=== PATIENT | female | born 1955 | race Caucasian/White ===

== ENCOUNTER → 2017-07-09 | Outpatient (CLI) | payer OTHER ==
[~2017-07-09] MED LIST: GADOBUTROL 10 ML VIAL IVP ONE
== END ==
LOC: FIMAGING 18:50
PROVIDERS: ATTEND Internal Medicine
DX: K83.1 Obstruction of bile duct (principal)
CPT/HCPCS: A9585

== ENCOUNTER 2018-08-28 10:14 | Emergency (ER) | payer OTHER ==
--- NOTE | 2018-08-28 10:19 | EDPHY ---
H & P Time Seen by Provider: 08/28/18 10:19 - Personal History Tetanus Vaccine Date: <10yrs - Medical/Surgical History Hx Asthma: No Hx Chronic Respiratory Disease: No Hx Diabetes: No Hx Cardiac Disease: No Hx Renal Disease: No Hx Cirrhosis: No Hx Alcoholism: No Hx HIV/AIDS: No Hx Splenectomy or Spleen Trauma: No Other PMH: slipped discs, lab-alan - Social History Smoking Status: Never smoked Constitutional: Initial Vital Signs Temperature (C) 36.6 C 08/28/18 10:23 Heart Rate 86 08/28/18 10:23 Respiratory Rate 18 08/28/18 10:23 Blood Pressure 106/69 08/28/18 10:23 O2 Sat (%) 94 08/28/18 10:23 O2 Delivery Mode Room Air Allergies/Adverse Reactions: cephalexin monohydrate [From Keflex] Allergy (Intermediate, Verified 09/19/14 17 :10) RASH/HIVES Penicillins Allergy (Intermediate, Verified 09/19/14 17:10) RASH/HIVES topiramate [From Topamax] Allergy (Verified 08/28/18 10:29) Home Medications: Medication Instructions Recorded Sumatriptan Succinate [Imitrex] 50 mg PO DAILY PRN 11/07/12 Acetaminophen [Tylenol ES 500 mg 1,000 mg PO DAILY PRN 01/14/16 (*)] Albuterol [Ventolin Hfa Inhaler] 1 - 2 puffs IH Q4 PRN 01/14/16 Ibuprofen [Motrin (*)] 800 mg PO BID PRN 01/14/16 Multivitamins [Multivitamin (*)] 1 each PO DAILY 01/14/16 Roberta-3 Fatty Acids [Fish Oil 1000 1,000 mg PO DAILY 01/14/16 mg (*)] Ondansetron HCl [Zofran] 8 mg PO TID PRN 01/14/16 Medical Decision Making - Diagnostics Imaging: I viewed and interpreted images myself ED Course/Re-evaluation: CHIEF COMPLAINT: Chest tightness HISTORY OF PRESENT ILLNESS: The patient is a 63 y/o female with a history hypokalemia, hyponatremia and asthma complaining of rib pain and chest pain onset several days ago. Around 4- 5 days ago she developed the low left rib pain that has progressively worsened. Today she developed intermittent chest pain that is radiating across the entire top of her chest. She reports that this chest pain feels like there is a "burning poker" on her chest and thigh muscles. Due to the chest pain she is having difficulty raising her left arm and difficulty walking due to the thigh pain. When she presses on her left rib, the pain significantly increases and is sharp. No fever, headache, shortness of breath, abdominal pain, urinary or bowel complaints, numbness. REVIEW OF SYSTEMS: A comprehensive 10 system review of systems is otherwise negative aside from elements mentioned in the history of present illness and medical decision making. PHYSICAL EXAM: HR, BP, O2 Sat, RR. Temp noted General Appearance: Alert, well hydrated, appropriate, and non-toxic appearing. Head: Atraumatic without scalp tenderness or obvious injury Eyes: Pupils equal, round, reactive to light and accommodation, EOMI, no trauma , no injection. Ears: Clear bilaterally, no perforation, normal landmarks Nose: Atraumatic, no rhinorrhea, clear. Throat: There is no erythema or exudates, no lesions, normal tonsils, mucus membranes moist. Neck: Supple, 2+ carotid upstroke, nontender, no lymphadenopathy. Respiratory: No retractions, no distress, no wheezes, and no accessory muscle use. Lungs are clear to auscultation bilaterally. Cardiovascular: Regular rate and rhythm, no murmurs, rubs, or gallops. Bilateral carotid, radial, dorsalis pedis, and posterior tibial pulses intact. Good capillary refill all extremities. Chest: Left-sided rib tenderness to palpation. Gastrointestinal: Abdomen is soft, nontender, non-distended, no masses, no rebound, no guarding, no peritoneal signs. Musculoskeletal: Normal active ROM of all extremities, atraumatic. Neurological: Alert, appropriate, and interactive. The patient has normal DTRs and non-focal cranial nerves, motor, sensory, and cerebellar exam. Skin: No rashes, good turgor, no nodules on palpation. Past medical history: Hyponatremia, hypokalemia, HCV, migraines, asthma Past surgical history: Cholecystectomy Family history: "Strong family history of cardiac problems" Social history: at bedside, DIAGNOSTICS/PROCEDURES/CRITICAL CARE TIME: EKG: The 12 lead EKG was interpreted by myself as sinus rhythm with a rate of 86 , no signs of ischemia. See hard copy and/or "tracemaster" electronic copy for interpretation. Chest x-ray: No acute findings. DIFFERENTIAL DIAGNOSIS: The differential diagnosis for the patient's chest pain included but was not limited to myocardial ischemia, pulmonary embolus, chest wall pain, pleural inflammation, and pulmonary infectious causes. MEDICAL DECISION MAKING: The patient is a 63 y/o female with a history hypokalemia, hyponatremia and asthma complaining of a sharp rib pain and chest pain that feels like a " burning poker" onset several days ago. On exam she has reproducible left rib tenderness to palpation. She has an otherwise normal physical exam. Labs, EKG, and chest x-ray ordered; 324mg PO Aspirin administered. 1025: I reviewed patient's EKG which reveals a normal sinus rhythm with a rate of 86. There are no signs of ischemia. Labs still pending. 1045: Patient's troponin is normal, electrolytes still pending. 1105: I reviewed patient's chest x-ray which reveals no acute findings. Her sodium and chloride are mildly low. She is safe to be discharged home with plan to follow up with her PCP. 1108: Reassessed patient and discussed laboratory and imaging studies. I have advised her to follow up with her PCP for rib pain. Return precautions provided ; patient is comfortable with this plan. - Data Points Laboratory Results: Laboratory Results 08/28/18 10:30 08/28/18 10:30 08/28/18 08/28/18 08/28/18 10:33 10:30 10:30 WBC 5.94 10^3/uL 10^3/uL (3.80-9.50) RBC 3.95 10^6/uL L 10^6/uL (4.18-5.33) Hgb 11.9 g/dL L g/dL (12.6-16.3) Hct 35.9 % L % (38.0-47.0) MCV 90.9 fL fL (81.5-99.8) MCH 30.1 pg pg (27.9-34.1) MCHC 33.1 g/dL g/dL (32.4-36.7) RDW 12.3 % % (11.5-15.2) Plt Count 267 10^3/uL 10^3/uL (150-400) MPV 8.9 fL fL (8.7-11.7) Neut % (Auto) 78.7 % H % (39.3-74.2) Lymph % (Auto) 12.5 % L % (15.0-45.0) [place] % (Auto) 7.4 % % (4.5-13.0) Eos % (Auto) 0.5 % L % (0.6-7.6) Baso % (Auto) 0.7 % % (0.3-1.7) Nucleat RBC Rel Count 0.0 % % (0.0-0.2) Absolute Neuts (auto) 4.68 10^3/uL 10^3/uL (1.70-6.50) Absolute Lymphs (auto) 0.74 10^3/uL L 10^3/uL (1.00-3.00) Absolute Monos (auto) 0.44 10^3/uL 10^3/uL (0.30-0.80) Absolute Eos (auto) 0.03 10^3/uL 10^3/uL (0.03-0.40) Absolute Basos (auto) 0.04 10^3/uL 10^3/uL (0.02-0.10) Absolute Nucleated RBC 0.00 10^3/uL 10^3/uL (0-0.01) Immature Gran % 0.2 % % (0.0-1.1) Immature Gran # 0.01 10^3/uL 10^3/uL (0.00-0.10) Sodium 128 mEq/L L mEq/L (135-145) Potassium 4.1 mEq/L mEq/L (3.5-5.2) Chloride 90 mEq/L L mEq/L (97-110) Carbon Dioxide 24 mEq/l mEq/l (22-31) Anion Gap 14 mEq/L mEq/L (6-14) BUN 20 mg/dL mg/dL (7-23) Creatinine 1.3 mg/dL H mg/dL (0.6-1.0) Estimated GFR 41 Glucose 76 mg/dL mg/dL (70-100) Calcium 9.1 mg/dL mg/dL (8.5-10.4) POC Troponin I 0.00 ng/mL ng/mL (0.00-0.08) Medications Given: Discontinued Medications Aspirin (Aspirin) 324 mg PO EDNOW ONE Stop: 08/28/18 10:28 Last Admin: 08/28/18 10:35 Dose: 324 mg Point of Care Test Results: Chemistry 08/28/18 10:33 POC Troponin I 0.00 ng/mL ng/mL (0.00-0.08) Departure - Departure Disposition: Home, Routine, Self-Care Clinical Impression: Myalgia, Rib pain on right side Condition: Good Instructions: Musculoskeletal Pain (ED), Rib Contusion (ED) Additional Instructions: 1. Follow-up with your primary doctor within 72 hours. 2. Return to the Emergency Department for fever, chest pain, shortness of breath , increasing pain or other worsening of condition. Referrals: [facility],. [Clinic] - As per Instructions Report Scribed for: Joseluis Dukes Report Scribed by: Eboni Almaguer Date of Report: 08/28/18 Time of Report: 10:20
[2018-08-28] MEDS ORDERED: ASPIRIN 81 MG CHEWABLE TAB PO ONE (10:27)
[2018-08-28 10:29] VITALS: BP 106/69
[2018-08-28 10:42] LABS: PLATELET COUNT 267 10^3/uL (150-400)
--- NOTE | 2018-08-28 14:49 | CPEKG ---
Test Reason : OPEN Blood Pressure : / mmHG Vent. Rate : 086 BPM Atrial Rate : 086 BPM P-R Int : 157 ms QRS Dur : 076 ms QT Int : 376 ms P-R-T Axes : 010 055 044 degrees QTc Int : 450 ms Sinus rhythm Confirmed by Joseluis Dukes ([id number]) on 08/28/2018 2:49:26 PM Referred By: Joseluis Dukes Confirmed By:Joseluis Dukes
== END 2018-08-28 11:15 | disposition home or self-care (01) ==
DX: R07.81 Pleurodynia (principal); R07.9 Chest pain, unspecified; M79.10 Myalgia, unspecified site; E87.1 Hypo-osmolality and hyponatremia; E87.6 Hypokalemia; Z90.49 Acquired absence of other specified parts of digestive tract
CPT/HCPCS: 84484-ER

== ENCOUNTER 2018-08-30 13:45 | Emergency (ER) | payer OTHER ==
[2018-08-30] MEDS ORDERED: NS 1,000 ML IV ONE ×2 (14:44→15:09)
[2018-08-30] MEDS ORDERED: ONDANSETRON 4 MG/2 ML VIAL IVP ONE (14:44)
[2018-08-30 14:49] LABS: PLATELET COUNT 314 10^3/uL (150-400)
--- NOTE | 2018-08-30 15:02 | EDPHY ---
H & P Stated Complaint: abdominal pain and unable to urinate Time Seen by Provider: 08/30/18 14:40 HPI/ROS: CHIEF COMPLAINT: Abdominal pain, fever HISTORY OF PRESENT ILLNESS: The patient presents the ED with multiple complaints including bilateral upper abdominal pain, fever and cough. The patient developed her symptoms last Wednesday. She was treated with Tamiflu for presumptive influenza. She was seen in the ED 2 days ago with complaints of chest pain and abdominal pain. She had a negative workup at that point time. She was discharged home. The patient saw her primary care provider yesterday. She was started on antibiotics. The patient was advised to come to the ED today for evaluation of worsening upper abdominal pain. The patient denies any melena. REVIEW OF SYSTEMS: A comprehensive 10 point review of systems is otherwise negative aside from elements mentioned in the history of present illness. Source: Patient Exam Limitations: No limitations - Personal History Current Tetanus/Diphtheria Vaccine: Yes Current Tetanus Diphtheria and Acellular Pertussis (TDAP): Yes Tetanus Vaccine Date: <10yrs - Medical/Surgical History Hx Asthma: Yes Hx Chronic Respiratory Disease: No Hx Diabetes: No Hx Cardiac Disease: No Hx Renal Disease: No Hx Cirrhosis: No Hx Alcoholism: No Hx HIV/AIDS: No Hx Splenectomy or Spleen Trauma: No Other PMH: slipped discs, lab-alan - Social History Smoking Status: Never smoked - Physical Exam Exam: General Appearance: Alert, no distress Eyes: Pupils equal and round no pallor or injection ENT, Mouth: Mucous membranes moist Respiratory: There are no retractions, lungs are clear to auscultation Cardiovascular: Regular rate and rhythm Gastrointestinal: Bilateral upper abdominal tenderness to the lightest touch Neurological: 5/5 strength all 4 extremities Skin: Warm and dry, no rashes Musculoskeletal: Neck is supple nontender Extremities: symmetrical, full range of motion Constitutional: Initial Vital Signs Temperature (C) 36.7 C 08/30/18 13:57 Heart Rate 81 08/30/18 13:57 Respiratory Rate 20 08/30/18 13:57 Blood Pressure 110/68 08/30/18 13:57 O2 Sat (%) 97 08/30/18 13:57 O2 Delivery Mode Room Air Allergies/Adverse Reactions: cephalexin monohydrate [From Keflex] Allergy (Intermediate, Verified 09/19/14 17 :10) RASH/HIVES Penicillins Allergy (Intermediate, Verified 09/19/14 17:10) RASH/HIVES topiramate [From Topamax] Allergy (Verified 08/28/18 10:29) Home Medications: Medication Instructions Recorded Sumatriptan Succinate [Imitrex] 50 mg PO DAILY PRN 11/07/12 Acetaminophen [Tylenol ES 500 mg 1,000 mg PO DAILY PRN 01/14/16 (*)] Albuterol [Ventolin Hfa Inhaler] 1 - 2 puffs IH Q4 PRN 01/14/16 Ibuprofen [Motrin (*)] 800 mg PO BID PRN 01/14/16 Multivitamins [Multivitamin (*)] 1 each PO DAILY 01/14/16 Hewett-3 Fatty Acids [Fish Oil 1000 1,000 mg PO DAILY 01/14/16 mg (*)] Ondansetron HCl [Zofran] 8 mg PO TID PRN 01/14/16 Medical Decision Making - Diagnostics Imaging Results: Imaging Impressions Abdomen CT 08/30/18 15:09 Impression: Ascending and transverse colon with mild amount of air-fluid level, including the cecum. Question early enteritis. Findings and recommendations discussed with Dr. Ehsan Cox at 4:00 PM, . Final report concurs with initial preliminary interpretation. ED Course/Re-evaluation: The patient presents to the ED with a viral syndrome which has been present for the past several days. She is currently being treated with Tamiflu. The patient's chief complaint today is 1 of ongoing upper abdominal discomfort. The patient is noted to have bilateral upper abdominal tenderness. She has no peritoneal signs. CT scan of the abdomen pelvis demonstrates only enteritis without perforation or obstruction. Urinalysis demonstrates no evidence of an obvious infection. Patient has been encouraged to continue symptomatic management of her viral syndrome. She is discharged home with customary aftercare instructions and return precautions. Differential Diagnosis: Differential diagnosis considered includes perforation, obstruction, cholecystitis, pancreatitis, appendicitis, mesenteric adenitis, sepsis - Data Points Laboratory Results: Laboratory Results 08/30/18 14:30 08/30/18 14:30 08/30/18 08/30/18 08/30/18 16:20 14:35 14:30 WBC RBC Hgb Hct MCV MCH MCHC RDW Plt Count MPV Neut % (Auto) Lymph % (Auto) [place] % (Auto) Eos % (Auto) Baso % (Auto) Nucleat RBC Rel Count Absolute Neuts (auto) Absolute Lymphs (auto) Absolute Monos (auto) Absolute Eos (auto) Absolute Basos (auto) Absolute Nucleated RBC Immature Gran % Immature Gran # Sodium 126 mEq/L L mEq/L (135-145) Potassium 3.4 mEq/L L mEq/L (3.5-5.2) Chloride 84 mEq/L L mEq/L (97-110) Carbon Dioxide 27 mEq/l mEq/l (22-31) Anion Gap 15 mEq/L H mEq/L (6-14) BUN 13 mg/dL mg/dL (7-23) Creatinine 1.0 mg/dL mg/dL (0.6-1.0) Estimated GFR 56 Glucose 95 mg/dL mg/dL (70-100) Calcium 10.6 mg/dL H mg/dL (8.5-10.4) Total Bilirubin 0.7 mg/dL mg/dL (0.1-1.4) Conjugated Bilirubin 0.5 mg/dL mg/dL (0.0-0.5) Unconjugated Bilirubin 0.2 mg/dL mg/dL (0.0-1.1) AST 39 IU/L IU/L (14-46) ALT 28 IU/L IU/L (9-52) Alkaline Phosphatase 100 IU/L IU/L (38-126) Total Protein 8.7 g/dL H g/dL (6.3-8.2) Albumin 4.8 g/dL g/dL (3.5-5.0) Urine Color YELLOW Urine Appearance MODERATELY TURBID Urine pH 7.0 (5.0-7.5) Ur Specific [place] 1.018 (1.002-1.030) Urine Protein NEGATIVE (NEGATIVE) Urine Ketones 1+ H (NEGATIVE) Urine Blood NEGATIVE (NEGATIVE) Urine Nitrate NEGATIVE (NEGATIVE) Urine Bilirubin NEGATIVE (NEGATIVE) Urine Urobilinogen NEGATIVE EU EU (0.2-1.0) Ur Leukocyte Esterase NEGATIVE (NEGATIVE) Urine RBC Pending Urine WBC Pending Ur Epithelial Cells Pending Urine Glucose NEGATIVE (NEGATIVE) 08/30/18 14:30 WBC 5.08 10^3/uL 10^3/uL (3.80-9.50) RBC 4.51 10^6/uL 10^6/uL (4.18-5.33) Hgb 13.2 g/dL g/dL (12.6-16.3) Hct 38.7 % % (38.0-47.0) MCV 85.8 fL fL (81.5-99.8) MCH 29.3 pg pg (27.9-34.1) MCHC 34.1 g/dL g/dL (32.4-36.7) RDW 12.3 % % (11.5-15.2) Plt Count 314 10^3/uL 10^3/uL (150-400) MPV 8.9 fL fL (8.7-11.7) Neut % (Auto) 76.7 % H % (39.3-74.2) Lymph % (Auto) 15.4 % % (15.0-45.0) [place] % (Auto) 6.1 % % (4.5-13.0) Eos % (Auto) 0.8 % % (0.6-7.6) Baso % (Auto) 0.8 % % (0.3-1.7) Nucleat RBC Rel Count 0.0 % % (0.0-0.2) Absolute Neuts (auto) 3.90 10^3/uL 10^3/uL (1.70-6.50) Absolute Lymphs (auto) 0.78 10^3/uL L 10^3/uL (1.00-3.00) Absolute Monos (auto) 0.31 10^3/uL 10^3/uL (0.30-0.80) Absolute Eos (auto) 0.04 10^3/uL 10^3/uL (0.03-0.40) Absolute Basos (auto) 0.04 10^3/uL 10^3/uL (0.02-0.10) Absolute Nucleated RBC 0.00 10^3/uL 10^3/uL (0-0.01) Immature Gran % 0.2 % % (0.0-1.1) Immature Gran # 0.01 10^3/uL 10^3/uL (0.00-0.10) Sodium Potassium Chloride Carbon Dioxide Anion Gap BUN Creatinine Estimated GFR Glucose Calcium Total Bilirubin Conjugated Bilirubin Unconjugated Bilirubin AST ALT Alkaline Phosphatase Total Protein Albumin Urine Color Urine Appearance Urine pH Ur Specific [place] Urine Protein Urine Ketones Urine Blood Urine Nitrate Urine Bilirubin Urine Urobilinogen Ur Leukocyte Esterase Urine RBC Urine WBC Ur Epithelial Cells Urine Glucose Medications Given: Discontinued Medications Sodium Chloride (Ns) 1,000 mls @ 0 mls/hr IV ONCE ONE PRN Reason: Wide Open Stop: 08/30/18 14:45 Last Admin: 08/30/18 14:52 Dose: 1,000 mls Ondansetron HCl (Zofran) 4 mg IVP EDNOW ONE Stop: 08/30/18 14:45 Last Admin: 08/30/18 14:53 Dose: 4 mg Departure - Departure Disposition: Home, Routine, Self-Care Clinical Impression: Abdominal pain, Hyponatremia Condition: Good Instructions: Acute Abdominal Pain (ED) Additional Instructions: 1. Continue the medications you are currently prescribed. 2. Your CT scan demonstrates no evidence of a obvious intra-abdominal abnormality. 3. Return to the ED for markedly worsening symptoms or other concerns. 4. Please follow-up with your primary care provider as needed.
[2018-08-30] MEDS ORDERED: IOHEXOL 350mgI/ML (OMNIPAQUE) 150 ML BTL IV ONE (15:19)
[2018-08-30] MEDS ORDERED: KETOROLAC 30 MG/1 ML SDV IVP ONE (17:12)
[2018-08-30 17:40] VITALS: BP 133/69
== END 2018-08-30 17:39 | disposition home or self-care (01) ==
PROC: 4A0D7LZ Measurement of Urinary Volume, Via Natural or Artificial Opening (ICD-10-PCS; principal; 2018-08-30)
DX: R10.10 Upper abdominal pain, unspecified (principal); E87.1 Hypo-osmolality and hyponatremia; E86.9 Volume depletion, unspecified; J45.909 Unspecified asthma, uncomplicated; Z88.0 Allergy status to penicillin
CPT/HCPCS: 96374; J1885; J2405; Q9967

== ENCOUNTER 2018-09-08 11:19 | Inpatient (IN) | payer OTHER ==
[2018-09-08] MEDS ORDERED: NS 1,000 ML IV ONE (11:59)
[2018-09-08 12:56] LABS: PLATELET COUNT 427 10^3/uL (150-400)
[2018-09-08 13:14] LABS: CREATINE KINASE 55 IU/L (0-156)
--- NOTE | 2018-09-08 13:27 | EDPHY ---
H & P Stated Complaint: weakness and aches Time Seen by Provider: 09/08/18 12:23 HPI/ROS: CHIEF COMPLAINT: Muscle cramping and weakness HISTORY OF PRESENT ILLNESS: 63-year-old female presents with diffuse muscle cramping and muscular weakness. 2 weeks ago, onset of vomiting, associated with muscle cramping. Seen by her primary care physician and influenza swab was negative. Placed on Tamiflu in case influenza. On follow-up, she had worsened symptoms, so was started on Zithromax and Bactrim. She continues to have gradually increasing muscle cramping and generalized weakness. She is now having trouble walking because of bilateral leg weakness. Seen in this emergency department 9 days ago, CT scan abdomen pelvis reportedly negative. Feels chilled, No fever. REVIEW OF SYSTEMS: complete 10 point ROS reviewed and is negative except for the noted elements in the HPI - Personal History Current Tetanus/Diphtheria Vaccine: Yes Current Tetanus Diphtheria and Acellular Pertussis (TDAP): Yes Tetanus Vaccine Date: <10yrs - Medical/Surgical History Hx Asthma: Yes Hx Chronic Respiratory Disease: No Hx Diabetes: No Hx Cardiac Disease: No Hx Renal Disease: No Hx Cirrhosis: No Hx Alcoholism: No Hx HIV/AIDS: No Hx Splenectomy or Spleen Trauma: No Other PMH: slipped discs, lab-alan, - Social History Smoking Status: Never smoked - Physical Exam Exam: General Appearance: Alert, pleasant, cachectic Eyes: Pupils equal and round, no conjunctival pallor or injection ENT, Mouth: Mucous membranes dry Neck: Normal inspection Respiratory: Lungs are clear to auscultation Cardiovascular: Regular rate and rhythm Gastrointestinal: Abdomen is soft, diffuse tenderness Neurological: A&O, generalized weakness, patellar DTRs 1+ bilaterally, gait not assessed Skin: Warm and dry Extremities: Normal inspection Psychiatric: Mood and affect normal Constitutional: Initial Vital Signs Temperature (C) 36.4 C 09/08/18 11:28 Heart Rate 94 09/08/18 11:28 Respiratory Rate 16 09/08/18 11:28 Blood Pressure 100/66 09/08/18 11:28 O2 Sat (%) 97 09/08/18 11:28 O2 Delivery Mode Room Air Allergies/Adverse Reactions: cephalexin monohydrate [From Keflex] Allergy (Intermediate, Verified 09/08/18 11 :26) RASH/HIVES Penicillins Allergy (Intermediate, Verified 09/08/18 11:26) RASH/HIVES topiramate [From Topamax] Allergy (Verified 09/08/18 11:26) Home Medications: Medication Instructions Recorded Sumatriptan Succinate [Imitrex] 50 mg PO DAILY PRN 11/07/12 Acetaminophen [Tylenol ES 500 mg 1,000 mg PO DAILY PRN 01/14/16 (*)] Albuterol [Ventolin Hfa Inhaler] 1 - 2 puffs IH Q4 PRN 01/14/16 Ibuprofen [Motrin (*)] 600 mg PO BID PRN 01/14/16 Multivitamins [Multivitamin (*)] 1 each PO DAILY 01/14/16 Merrick-3 Fatty Acids [Fish Oil 1000 1,000 mg PO DAILY 01/14/16 mg (*)] Ondansetron HCl [Zofran] 8 mg PO TID PRN 01/14/16 Bimatoprost [Latisse] 3 ml TP DAILY 09/08/18 Calcium Carbonate [Oyster Shell 1,000 mg PO TID 09/08/18 Calcium 500 mg (*)] Epinastine 0.05% [Elestat 0.05% 1 drops EACHEYE DAILY 09/08/18 (RX)] Estradiol 10 mcg VG MWF 09/08/18 Estradiol [Estrace Vaginal (*)] 1 gm VG DAILY 09/08/18 Gabapentin [Neurontin 300 MG (*)] 300 mg PO HS 09/08/18 Hydrochlorothiazide [HCTZ (*)] 25 mg PO DAILY 09/08/18 Lidocaine [Lidoderm] 1 each TP DAILY 09/08/18 Magnesium Citrate 200 mg PO BID 09/08/18 Potassium Cl [Klor-Con 20 meq (*)] 20 meq PO BID 09/08/18 predniSONE 20 mg PO DAILY 09/08/18 Medical Decision Making - Diagnostics EKG Interpretation: EKG interpreted by me reveals normal sinus rhythm, rate 77, low voltage, no ST or T segment changes. Interpretation: Otherwise normal EKG. Imaging Results: Chest X-Ray 09/08/18 12:31 Impression: Airways disease. No pneumonia. Imaging: I viewed and interpreted images myself ED Course/Re-evaluation: This pt presents with gradually worsening muscle weakness and muscle pain after recent viral syndrome. IV NS and Toradol IV given. Considered Guillain [place]; pt has reflexes, which I would not expect with GBS, but still possible. Hyponatremia likely secondary to dehydration, ?SIADH assoc with GBS. Pt also has eating disorder, could be contributing to dx. No evidence of pneumonia, other active infectious etiology, abx not indicated. Pt unable to ambulate, will need admission for further eval and treatment. The hospitalist service was consulted for admission. Differential Diagnosis: GBS, other GBS variant, hyponatremia, influenza, SIADH, severe dehydration, - Data Points Laboratory Results: Laboratory Results 09/08/18 12:30 09/08/18 12:30 Medications Given: Acetaminophen (Tylenol) 650 mg PO Q4HRS PRN PRN Reason: Pain, Mild/Fever, Can Take PO Stop: 03/07/19 14:18 Last Admin: 09/09/18 12:53 Dose: 650 mg Calcium Carbonate (Oyster Shell Calcium) 1,000 mg PO TID CAMRON Stop: 03/07/19 21:59 Last Admin: 09/10/18 14:57 Dose: 1,000 mg Epinastine HCl (Elestat 0.05%) 1 drops EACHEYE DAILY CAMRON Stop: 03/08/19 08:59 Last Admin: 09/10/18 12:19 Dose: Not Given Estradiol (Estrace Vaginal) 1 gm VG DAILY CAMRON Stop: 03/08/19 08:59 Last Admin: 09/10/18 12:20 Dose: Not Given Gabapentin (Neurontin) 300 mg PO HS CAMRON Stop: 03/07/19 20:59 Last Admin: 09/09/18 21:37 Dose: 300 mg Sodium Chloride (Ns) 1,000 mls @ 75 mls/hr IV CONT CAMRON Stop: 09/11/18 02:04 Last Admin: 09/09/18 21:40 Dose: 1,000 mls Ciprofloxacin/Dextrose (Cipro 400 Mg (Premix)) 200 mls @ 200 mls/hr IV Q12HRS CAMRON PRN Reason: Protocol Stop: 10/10/18 13:14 Last Admin: 09/10/18 14:57 Dose: 200 mls Ibuprofen (Motrin) 600 mg PO BID PRN PRN Reason: *Pain, Inflammatory Stop: 03/07/19 16:58 Last Admin: 09/10/18 05:50 Dose: 600 mg Miscellaneous Information (Patch Removal) 1 ea TD DAILY21 CAMRON Stop: 03/07/19 20:59 Last Admin: 09/09/18 21:38 Dose: 1 ea Miscellaneous Medication (Bimatoprost [Latisse]) 3 ml TP DAILY CAMRON Stop: 03/08/19 08:59 Last Admin: 09/10/18 12:19 Dose: Not Given Miscellaneous Medication (Estradiol [Estradiol]) 10 mcg VG MWF CAMRON Stop: 03/08/19 07:59 Last Admin: 09/09/18 08:40 Dose: Not Given Miscellaneous Medication (Icy Hot Lidocaine/Menthol 4%/1% Patch) 1 patch TD DAILY CAMRON Stop: 03/08/19 08:59 Last Admin: 09/10/18 10:56 Dose: 1 patch Miscellaneous Medication (Magnesium Citrate [Magnesium Citrate]) 200 mg PO BID CAMRON Stop: 03/07/19 20:59 Last Admin: 09/10/18 11:01 Dose: Not Given Multivitamins (Tab-A-Tory) 1 each PO DAILY CAMRON Stop: 03/08/19 08:59 Last Admin: 09/10/18 10:59 Dose: 1 each Thmpb-2-Sjhu Ethyl Esters (Fish Oil) 1,000 mg PO DAILY CAMRON Stop: 03/08/19 08:59 Last Admin: 09/10/18 11:01 Dose: 1,000 mg Ondansetron HCl (Zofran) 4 mg IVP Q4HRS PRN PRN Reason: Nausea/Vomiting, Can't Take PO Stop: 03/07/19 14:18 Last Admin: 09/10/18 11:00 Dose: 4 mg Oxycodone HCl (Oxycodone Ir) 5 mg PO Q4HRS PRN PRN Reason: Pain, Severe Able to Take PO Stop: 09/19/18 14:54 Last Admin: 09/10/18 14:57 Dose: 5 mg Potassium Chloride (Klor-Con) 20 meq PO BID CAMRON Stop: 03/07/19 20:59 Last Admin: 09/10/18 10:57 Dose: 20 meq Prednisone (Prednisone) 20 mg PO DAILY CAMRON Stop: 03/08/19 08:59 Last Admin: 09/10/18 11:00 Dose: 20 mg Discontinued Medications Sodium Chloride (Ns) 1,000 mls @ 0 mls/hr IV EDNOW ONE; Wide Open PRN Reason: Protocol Stop: 09/08/18 12:00 Last Admin: 09/08/18 12:02 Dose: 1,000 mls Sodium Chloride (Ns) 1,000 mls @ 0 mls/hr IV CONT CAMRON PRN Reason: TKO Stop: 03/07/19 13:29 Last Admin: 09/08/18 13:24 Dose: 1,000 mls Sodium Chloride (Ns) 1,000 mls @ 100 mls/hr IV CONT CAMRON Stop: 03/07/19 14:29 Last Admin: 09/08/18 16:51 Dose: 1,000 mls Magnesium Sulfate/Dextrose (Magnesium Sulf 1 Gm (Premix)) 100 mls @ 100 mls/hr IV ONCE ONE Stop: 09/09/18 13:23 Last Admin: 09/09/18 12:48 Dose: 100 mls Ketorolac Tromethamine (Toradol) 15 mg IVP EDNOW ONE Stop: 09/08/18 13:34 Last Admin: 09/08/18 13:37 Dose: 15 mg Ondansetron HCl (Zofran) 4 mg IVP EDNOW ONE Stop: 09/08/18 13:49 Last Admin: 09/08/18 14:31 Dose: 4 mg Potassium Chloride (Klor-Con) 40 meq PO ONCE ONE PRN Reason: Protocol Stop: 09/08/18 16:07 Last Admin: 09/08/18 16:51 Dose: 40 meq Potassium Chloride (Klor-Con) 10 meq PO ONCE ONE PRN Reason: Protocol Stop: 09/09/18 20:34 Last Admin: 09/09/18 21:37 Dose: 10 meq Departure - Departure Disposition: [facility] Acute Clinical Impression: Hyponatremia, Generalized weakness Condition: Fair
[2018-09-08] MEDS ORDERED: NS 1,000 ML IV SCH ×3 (13:30→21:15)
[2018-09-08] MEDS ORDERED: KETOROLAC 15 MG/1 ML SDV IVP ONE (13:33)
[2018-09-08] MEDS ORDERED: ONDANSETRON 4 MG/2 ML VIAL IVP ONE (13:48)
[2018-09-08] MEDS ORDERED: ONDANSETRON DISINTEGRATING 4 MG TAB PO PRN (14:19)
[2018-09-08] MEDS ORDERED: PROTOCOL MAGNESIUM 1 DOSE IV PRN (14:26)
[2018-09-08] MEDS ORDERED: PROTOCOL POTASSIUM 1 DOSE MISC PRN (14:26)
--- NOTE | 2018-09-08 15:02 | GHP ---
[f rep st] HISTORY AND PHYSICAL DATE OF ADMISSION: 09/08/2018 HISTORY OF PRESENT ILLNESS: The patient is a 63-year-old female with a history of chronic hyponatrem ia, hydrochlorothiazide therapy, hepatitis C and biliary stricture, who presents with a couple weeks of malaise. She has had a few ER visits. She was seen by her primary care physician where she recei berry a flu test that was negative, but was treated with Bactrim and Tamiflu despite this. She has had decreased p.o. intake as well as all-over body pain. She has a spontaneous bruise on her right thig h. She does not recall falling nor does her . When I speak with her today, she is anxious, u ncomfortable, perhaps a bit confused. She says she has been eating and drinking very poorly. She st ates her eating disorder issues are in remission and she has been considered to have bulimia in the p ast. It is not clear that she has been vomiting. She has not had diarrhea. She does not have abdom inal pain. She has not been jaundiced. She said her hepatitis C treatment was successful. REVIEW OF SYSTEMS: A complete 10-point review of systems conducted and negative except as noted in t he HPI. PAST MEDICAL HISTORY: 1. Hepatitis C. 2. Biliary stricture. 3. Possible bulimia. 4. Chronic hyponatremia. 5. Lower extremity edema, but none today. 6. Migraines. ALLERGIES: Keflex, penicillins, Topamax. MEDICATIONS: Home medication list includes hydrochlorothiazide. An older list includes Tylenol, ibu profen, multivitamin, fish oil, ondansetron, potassium chloride, Imitrex. SOCIAL HISTORY: No tobacco. No alcohol. Does not live in [facility]. . FAMILY HISTORY: Parents . PHYSICAL EXAMINATION: VITAL SIGNS: Temp 36.6, blood pressure 110/60, pulse , breathing 19 times a minute, 97% on room air. GENERAL: Anxious, uncomfortable, no acute distress. HEENT: Scle marta anicteric. Oropharynx clear. Mucous membranes moist. NECK: Supple without lymphadenopathy or JVD. LUNGS: Clear to auscultation bilaterally. HEART: S1, S2. ABDOMEN: Soft, nontender, nondiste nded. LOWER EXTREMITIES: No edema. SKIN: A 4 cm bruise without fluctuance on her right thigh. Sk in is without rash. NEUROLOGIC: Exam is nonfocal. LABORATORY DATA: Sodium 121, potassium 3.1, chloride 79, bicarb 27, BUN 20, creatinine 1.2, baseline is lower than this. LFTs normal. CK is 55. Recent UA was negative. Recent Gardnerella DNA probe was negative. White count 6.5, hematocrit 36, platelets 427,000. Chest x-ray interpreted by me show s no acute cardiopulmonary disease. EKG shows sinus at 77 with normal axis and intervals, and no ST or T-wave changes. I discussed the case with Dr. Josselin Askew of the emergency department. ASSESSMENT AND PLAN: This is a 63-year-old female with acute on chronic hyponatremia. 1. Hyponatremia. This is hypovolemic hyponatremia as well as poor solute in the setting of hydrochl orothiazide therapy. a. Permanently discontinue hydrochlorothiazide. b. Gentle intravenous fluids with q.4 sodiums with a goal of raising of it to about 130 x 2:00 tomor row afternoon. c. We will check a TSH. d. Will give her t.i.d. Boost. 2. Some question of increased fluid intake, so would recommend a 2 L fluid restriction. 3. All-over body pain. It is difficult to know what to make of this. The patient is dramatic in he r presentation. I think it is appropriate to fix her sodium and re-evaluate. 4. Hypokalemia. We can put her on the electrolyte protocol. 5. History of eating disorder. It is difficult to know how this is playing into it. Eating disorde rs in adults rarely go into complete remission, so there is certainly concern that there could be a c omponent of self-restricted p.o. intake. 6. Prophylaxis with sequential compression devices. DISPOSITION: Inpatient status. /[id number]/MODL
[2018-09-08 15:19] LABS: INR 0.87 (0.83-1.16); PROTIME(PATIENT) 12.1 SEC (12.0-15.0)
--- NOTE | 2018-09-08 15:20 | CPEKG ---
Test Reason : OPEN Blood Pressure : / mmHG Vent. Rate : 077 BPM Atrial Rate : 077 BPM P-R Int : 197 ms QRS Dur : 083 ms QT Int : 401 ms P-R-T Axes : -32 054 053 degrees QTc Int : 454 ms Sinus rhythm Low voltage, precordial leads Confirmed by Sabrina Aponte ([id number]) on 09/08/2018 3:19:38 PM Referred By: SABRINA APONTE Confirmed By:Sabrina Aponte
[2018-09-08] MEDS ORDERED: POTASSIUM CL 10 MEQ TAB PO ONE (16:06)
--- NOTE | 2018-09-08 16:32 | PDMN ---
Medical Necessity Medical necessity: MCG: GRG systemic condition: hyponatremia NA 121 , with general body pains, weakness and cramping, bilateral leg weakness with difficulty ambulating, Hypokalemia( 3.1) , decreased PO intake, spontaneous bruising, confused, mildly elevated Cr 1.2, anticipate > 2 MN ongoing med nec care- further monitoring , eval and tx
[2018-09-08] MEDS ORDERED: ACETAMINOPHEN 500 MG TAB PO PRN (16:59)
[2018-09-08] MEDS ORDERED: ALBUTEROL 60 PUFFS/8 GM MDI IH PRN (17:15)
[2018-09-08] MEDS: IBUPROFEN 200 MG TAB PO PRN (17:16)
[2018-09-08] MEDS: ACETAMINOPHEN 325 MG TAB PO PRN (17:17)
[2018-09-08] MEDS: GABAPENTIN 300 MG CAP PO SCH (20:04)
[2018-09-08] MEDS: POTASSIUM CL 20 MEQ TAB PO SCH (20:08)
[2018-09-08] MEDS: ONDANSETRON 4 MG/2 ML VIAL IVP PRN (20:10)
[2018-09-08] MEDS: PATCH REMOVAL 1 EA PATCH TD SCH (21:07)
[2018-09-08] MEDS: MAGNESIUM CITRATE 200 MG PO SCH (21:07)
[2018-09-08] MEDS: CALCIUM CARBONATE 500 MG TAB PO SCH (21:08)
[2018-09-09] MEDS: ONDANSETRON 4 MG/2 ML VIAL IVP PRN ×5 (01:20→21:54)
[2018-09-09] MEDS: predniSONE 20 MG TAB PO SCH (08:33)
[2018-09-09] MEDS: POTASSIUM CL 20 MEQ TAB PO SCH ×2 (08:33→21:37)
[2018-09-09] MEDS: OMEGA-3 FATTY ACIDS 1,000 MG CAP PO SCH (08:33)
[2018-09-09] MEDS: MULTIVITAMINS 1 EACH TAB PO SCH (08:33)
[2018-09-09] MEDS: LIDOCAINE 4%/MENTHOL 1% PATCH TD SCH (08:34)
[2018-09-09] MEDS: CALCIUM CARBONATE 500 MG TAB PO SCH ×3 (08:34→21:36)
[2018-09-09] MEDS: BIMATOPROST TP SCH (08:40)
[2018-09-09] MEDS: MAGNESIUM CITRATE 200 MG PO SCH ×2 (08:41→21:23)
[2018-09-09] MEDS: EPINASTINE 0.05% 5 ML OPHT.BTL EACHEYE SCH (08:41)
[2018-09-09] MEDS: ESTRADIOL 42.5 GM CRTUBE VG SCH (08:42)
[2018-09-09] MEDS: IBUPROFEN 200 MG TAB PO PRN (08:44)
[2018-09-09] MEDS: ACETAMINOPHEN 325 MG TAB PO PRN ×2 (08:44→12:53)
[2018-09-09] MEDS ORDERED: MAGNESIUM SULF 1 GM/DEXTROSE 100 ML IV ONE (12:24)
[2018-09-09] MEDS: NS 1,000 ML IV SCH ×2 (12:48→21:40)
--- NOTE | 2018-09-09 15:01 | HOSPPROG ---
Hospitalist Progress Note Assessment/Plan: #acute vs subacute vs acute on chronic hyponatremia -acute valued likely hypovolemia mediated -Na today 127, these are values consistent with labs prior to hospitalization -still looks volume dry. Will provide additional IV hydration, serial bmp today. #Dehydration #Malaise, multifactorial #Pedal Edema -none noted -was on HCTZ for this (denies hx of HTN) -Stop HCTZ #Generalized Pain, acute on chronic -PCP has started Prednisone for this. Will cont for now, but would like to stop during this admission -will start low dose opiate #recent Influenza treated with Tamiflu. Also with Bactrim and Zpack. No indication for additional abx at this time #Weakness: PT to eval #Hx of Hep C, s/p treatment Subjective: still with generalized pain, malaise, weakness. afebrile Objective: Vital Signs Temp Pulse Resp BP Pulse Ox 36.8 C 76 14 107/66 95 09/09/18 11:46 09/09/18 11:46 09/09/18 11:46 09/09/18 11:46 09/09/18 11:46 Laboratory Results 09/09/18 11:23 09/08/18 09/09/18 09/10/18 05:59 05:59 05:59 Intake Total 1820 450 Output Total 650 100 Balance 1170 350 PT 12.1 SEC (12.0-15.0) 09/08/18 11:45 INR 0.87 (0.83-1.16) 09/08/18 11:45 - Physical Exam Constitutional: no apparent distress Eyes: PERRL, EOMI Ears, Nose, Mouth, Throat: moist mucous membranes, hearing normal Cardiovascular: regular rate and rhythym, No edema Respiratory: no respiratory distress, no rales or rhonchi, clear to auscultation Gastrointestinal: normoactive bowel sounds Skin: warm Musculoskeletal: generalized weakness Neurologic: AAOx3 Psychiatric: interacting appropriately, not anxious, not encephalopathic Lymph, Heme, Immunologic: No petechiae ICD10 Worksheet Patient Problems: Problems Problem Status Onset Hypokalemia Acute Nausea & vomiting Acute
--- NOTE | 2018-09-09 15:48 | ASMTCMCOM ---
CM Note CM Note Notes: Reviewed chart, pt admitted for general malaise. She has a history of hep c which was treated and an eating disorder which she feels is in remission. She lives at home with her , PT eval pending but anticipate she will dc independent. DC Plan: TBD Date Signed: 09/09/2018 03:47 PM Electronically Signed By:Martha Noe RN
[2018-09-09] MEDS: oxyCODONE IR 5 MG TAB PO PRN ×2 (16:57→21:36)
[2018-09-09] MEDS ORDERED: POTASSIUM CL 10 MEQ TAB PO ONE (20:33)
[2018-09-09] MEDS: GABAPENTIN 300 MG CAP PO SCH (21:37)
[2018-09-09] MEDS: PATCH REMOVAL 1 EA PATCH TD SCH (21:38)
[2018-09-10] MEDS: ONDANSETRON 4 MG/2 ML VIAL IVP PRN ×5 (02:50→23:27)
[2018-09-10] MEDS: oxyCODONE IR 5 MG TAB PO PRN ×6 (02:50→23:25)
[2018-09-10] MEDS: IBUPROFEN 200 MG TAB PO PRN (05:50)
[2018-09-10] MEDS: LIDOCAINE 4%/MENTHOL 1% PATCH TD SCH (10:56)
[2018-09-10] MEDS: POTASSIUM CL 20 MEQ TAB PO SCH ×2 (10:57→20:22)
[2018-09-10] MEDS: CALCIUM CARBONATE 500 MG TAB PO SCH ×3 (10:58→20:22)
[2018-09-10] MEDS: predniSONE 20 MG TAB PO SCH ×2 (10:58→11:00)
[2018-09-10] MEDS: MULTIVITAMINS 1 EACH TAB PO SCH ×2 (10:58→10:59)
[2018-09-10] MEDS: OMEGA-3 FATTY ACIDS 1,000 MG CAP PO SCH (11:01)
[2018-09-10] MEDS: MAGNESIUM CITRATE 200 MG PO SCH ×2 (11:01→20:23)
[2018-09-10] MEDS: BIMATOPROST TP SCH (12:19)
[2018-09-10] MEDS: EPINASTINE 0.05% 5 ML OPHT.BTL EACHEYE SCH (12:19)
[2018-09-10] MEDS: ESTRADIOL 42.5 GM CRTUBE VG SCH (12:20)
--- NOTE | 2018-09-10 13:15 | HOSPPROG ---
Hospitalist Progress Note Assessment/Plan: #acute vs subacute vs acute on chronic hyponatremia -likely hypovolemia mediated in the setting of SiADH -Na today 127, these are values consistent with labs prior to hospitalization -urine studies c/w SiADH #Dehydration: resolved #Malaise, multifactorial #Pedal Edema -none noted -was on HCTZ for this (denies hx of HTN) -Stop HCTZ #Generalized Pain, acute on chronic -PCP has started Prednisone for this. Will cont for now, but would like to stop during this admission -will start low dose opiate #recent Influenza treated with Tamiflu. Also with Bactrim and Zpack. No indication for additional abx at this time #Weakness: PT to eval #UTI: will start Rocephin. UCx sent #Hx of Hep C, s/p treatment Plan: doing better overall trial off IVF recheck labs in a.m. anticipate d/c tomorrow Subjective: no cp or sob. still feels weak but better. afebrile. reports vague urinary symtpoms, requesting treatment for UTI Objective: Vital Signs Temp Pulse Resp BP Pulse Ox 36.7 C 71 14 114/59 L 97 09/10/18 08:00 09/10/18 08:00 09/10/18 08:00 09/10/18 08:00 09/10/18 08:00 Laboratory Results 09/10/18 04:18 09/09/18 09/10/18 09/11/18 05:59 05:59 05:59 Intake Total 1820 1500 250 Output Total 650 1775 450 Balance 1170 -275 -200 PT 12.1 SEC (12.0-15.0) 09/08/18 11:45 INR 0.87 (0.83-1.16) 09/08/18 11:45 - Physical Exam Constitutional: no apparent distress Eyes: PERRL, EOMI Ears, Nose, Mouth, Throat: moist mucous membranes, hearing normal Cardiovascular: regular rate and rhythym Respiratory: no respiratory distress Gastrointestinal: normoactive bowel sounds Skin: warm Neurologic: AAOx3 Psychiatric: interacting appropriately, not anxious, not encephalopathic Lymph, Heme, Immunologic: No petechiae ICD10 Worksheet Patient Problems: Problems Problem Status Onset Hypokalemia Acute Nausea & vomiting Acute
[2018-09-10] MEDS: CIPROFLOXACIN 400 MG/DEXTROSE 200 ML IV SCH ×2 (14:57→20:27)
[2018-09-10] MEDS: GABAPENTIN 300 MG CAP PO SCH (20:21)
[2018-09-10] MEDS: PATCH REMOVAL 1 EA PATCH TD SCH (20:23)
[2018-09-11] MEDS: oxyCODONE IR 5 MG TAB PO PRN ×5 (03:49→22:43)
[2018-09-11] MEDS: ONDANSETRON 4 MG/2 ML VIAL IVP PRN ×4 (03:49→18:39)
[2018-09-11] MEDS: MULTIVITAMINS 1 EACH TAB PO SCH (08:11)
[2018-09-11] MEDS: POTASSIUM CL 20 MEQ TAB PO SCH ×2 (08:11→21:39)
[2018-09-11] MEDS: CALCIUM CARBONATE 500 MG TAB PO SCH ×3 (08:11→21:39)
[2018-09-11] MEDS: OMEGA-3 FATTY ACIDS 1,000 MG CAP PO SCH (08:12)
[2018-09-11] MEDS: predniSONE 20 MG TAB PO SCH ×2 (08:12→10:09)
[2018-09-11] MEDS: LIDOCAINE 4%/MENTHOL 1% PATCH TD SCH (10:09)
[2018-09-11] MEDS: CIPROFLOXACIN 400 MG/DEXTROSE 200 ML IV SCH ×2 (10:09→21:13)
[2018-09-11] MEDS: MAGNESIUM CITRATE 200 MG PO SCH ×2 (12:09→20:18)
[2018-09-11] MEDS: ESTRADIOL 42.5 GM CRTUBE VG SCH (12:09)
[2018-09-11] MEDS: BIMATOPROST TP SCH (12:09)
[2018-09-11] MEDS: EPINASTINE 0.05% 5 ML OPHT.BTL EACHEYE SCH (12:09)
--- NOTE | 2018-09-11 12:39 | HOSPPROG ---
Hospitalist Progress Note Assessment/Plan: #acute vs subacute vs acute on chronic hyponatremia -likely hypovolemia mediated in the setting of SiADH -Na today 125, these are values consistent with labs prior to hospitalization -urine studies c/w SiADH #Nausea and vomiting: -will schedule Phenergan which should also help with her TURNER #Dehydration: restart IVF, low oral intake now that she is nauseous #Malaise, multifactorial #Pedal Edema -none noted -was on HCTZ for this (denies hx of HTN) -Stop HCTZ #Generalized Pain, acute on chronic -PCP has started Prednisone for this. Will cont for now, but would like to stop during this admission -will start low dose opiate #recent Influenza treated with Tamiflu. Also with Bactrim and Zpack. No indication for additional abx at this time #Weakness: PT to eval #UTI: will start Rocephin. UCx sent #Hx of Hep C, s/p treatment Plan: not ready for discharge. New Nausea and vomiting. Na stable d/c: possibly tomorrow Subjective: vomiting, abd pain Objective: Vital Signs Temp Pulse Resp BP Pulse Ox 37.0 C 80 16 126/76 H 94 09/11/18 08:00 09/11/18 08:00 09/11/18 08:00 09/11/18 08:00 09/11/18 08:00 Laboratory Results 09/11/18 04:28 09/10/18 09/11/18 09/12/18 05:59 05:59 05:59 Intake Total 1500 1100 Output Total 1775 1450 200 Balance -275 -350 -200 PT 12.1 SEC (12.0-15.0) 09/08/18 11:45 INR 0.87 (0.83-1.16) 09/08/18 11:45 - Physical Exam Constitutional: no apparent distress Eyes: PERRL, EOMI Ears, Nose, Mouth, Throat: moist mucous membranes, hearing normal Cardiovascular: regular rate and rhythym Respiratory: no respiratory distress, no rales or rhonchi, clear to auscultation Gastrointestinal: normoactive bowel sounds, No tenderness, No distension Skin: warm Neurologic: AAOx3 Psychiatric: interacting appropriately, not anxious, not encephalopathic Lymph, Heme, Immunologic: No petechiae ICD10 Worksheet Patient Problems: Problems Problem Status Onset Generalized weakness Acute Hyponatremia Acute Hypokalemia Acute Nausea & vomiting Acute
[2018-09-11] MEDS ORDERED: SUMAtriptan 6 MG/0.5 ML VIAL SC ONE (12:40)
--- NOTE | 2018-09-11 12:44 | ASMTCMCOM ---
CM Note CM Note Notes: Patient with new onset n/v and TURNER. Discharge delayed but likely tomorrow. No needs per RN and PT. Current CM Discharge plan: home independent w Date Signed: 09/11/2018 12:44 PM Electronically Signed By:Amelie Ugalde RN
[2018-09-11] MEDS ORDERED: NS W/ 20 KCl/L 1,000 ML IV SCH (12:45)
[2018-09-11] MEDS: PROMETHAZINE HCL 25 MG/ML INJ IVP SCH ×4 (15:00→22:39)
[2018-09-11] MEDS: PANTOPRAZOLE SODIUM 40 MG VIAL IVP SCH (16:28)
[2018-09-11] MEDS: GABAPENTIN 300 MG CAP PO SCH (21:38)
[2018-09-11] MEDS: PATCH REMOVAL 1 EA PATCH TD SCH (21:38)
[2018-09-11] MEDS: IBUPROFEN 200 MG TAB PO PRN (22:43)
[2018-09-12] MEDS: oxyCODONE IR 5 MG TAB PO PRN ×4 (04:50→21:23)
[2018-09-12] MEDS ORDERED: MAGNESIUM SULF 1 GM/DEXTROSE 100 ML IV ONE (08:03)
[2018-09-12] MEDS: PROMETHAZINE HCL 25 MG/ML INJ IVP SCH ×3 (08:29→21:07)
[2018-09-12] MEDS: LIDOCAINE 4%/MENTHOL 1% PATCH TD SCH (08:34)
[2018-09-12] MEDS: BIMATOPROST TP SCH (08:38)
[2018-09-12] MEDS: MAGNESIUM CITRATE 200 MG PO SCH ×2 (08:39→21:29)
[2018-09-12] MEDS: ESTRADIOL 42.5 GM CRTUBE VG SCH (08:39)
[2018-09-12] MEDS: EPINASTINE 0.05% 5 ML OPHT.BTL EACHEYE SCH (08:39)
[2018-09-12] MEDS: PANTOPRAZOLE SODIUM 40 MG VIAL IVP SCH (08:40)
--- NOTE | 2018-09-12 08:50 | HOSPPROG ---
Hospitalist Progress Note Assessment/Plan: #Acute vs chronic hyponatremia -likely hypovolemia mediated in the setting of SiADH, HCTZ -Na improving with NS, cont and repeat BMP this janay #Nausea and vomiting: -will schedule Phenergan #Dehydration: restart IVF, low oral intake now that she is nauseous #Malaise, multifactorial #Pedal Edema -was on HCTZ for this (denies hx of HTN) -Stop HCTZ #Generalized Pain, acute on chronic -stopped Prednisone bc not effective. Unclear reason for this pain?? Would not expect this given electrolyte derangements not PCP has started Prednisone for this. Query secondary gain? -Low TSH, but free T3/4 normal #Recent Influenza: s/p Tamiflu. #UTI: Day 2/ abx #Hx of Hep C, s/p treatment Disp: likely DC in 1-2 days once Na improved Subjective: "burning pain from chest to thighs". Prednisone did not help Objective: Vital Signs Temp Pulse Resp BP Pulse Ox 36.8 C 85 17 130/76 H 96 09/12/18 07:47 09/12/18 07:47 09/12/18 07:47 09/12/18 07:47 09/12/18 07:47 Laboratory Results 09/12/18 04:26 09/11/18 09/12/18 09/13/18 05:59 05:59 05:59 Intake Total 1100 200 Output Total 1450 1400 Balance -350 -1200 PT 12.1 SEC (12.0-15.0) 09/08/18 11:45 INR 0.87 (0.83-1.16) 09/08/18 11:45 - Time Spent With Patient Time Spent with Patient: greater than 35 minutes Time Spent with Patient: Greater than 35 minutes spent on this patients care, greater than 50% of time spent counseling, educating, and coordinating care regarding the above mentioned plan. - Physical Exam Constitutional: other (anxious) Eyes: PERRL Ears, Nose, Mouth, Throat: moist mucous membranes Cardiovascular: regular rate and rhythym Respiratory: no respiratory distress Gastrointestinal: normoactive bowel sounds Genitourinary: no bladder fullness Skin: warm Musculoskeletal: full muscle strength, no muscle tenderness Neurologic: AAOx3, sensation intact bilaterally, CN II-XII Intact Psychiatric: interacting appropriately, anxious, poor insight ICD10 Worksheet Patient Problems: Problems Problem Status Onset Generalized weakness Acute Hyponatremia Acute Hypokalemia Acute Nausea & vomiting Acute
[2018-09-12] MEDS: CIPROFLOXACIN 400 MG/DEXTROSE 200 ML IV SCH ×2 (10:09→21:25)
[2018-09-12] MEDS: CALCIUM CARBONATE 500 MG TAB PO SCH ×3 (10:12→21:12)
[2018-09-12] MEDS: POTASSIUM CL 20 MEQ TAB PO SCH ×2 (10:12→21:23)
[2018-09-12] MEDS: OMEGA-3 FATTY ACIDS 1,000 MG CAP PO SCH (10:12)
[2018-09-12] MEDS: MULTIVITAMINS 1 EACH TAB PO SCH (10:13)
[2018-09-12] MEDS ORDERED: SUMAtriptan 6 MG/0.5 ML VIAL SC ONE ×2 (10:26→15:00)
[2018-09-12] MEDS: ONDANSETRON 4 MG/2 ML VIAL IVP PRN (11:16)
[2018-09-12] MEDS ORDERED: ACET/CAFFEINE/BUTA FIORICET 1 EACH TAB PO PRN (12:03)
[2018-09-12] MEDS ORDERED: NS 1,000 ML IV SCH (15:45)
[2018-09-12] MEDS: PATCH REMOVAL 1 EA PATCH TD SCH (21:11)
[2018-09-12] MEDS: GABAPENTIN 300 MG CAP PO SCH (21:12)
[2018-09-13] MEDS: IBUPROFEN 200 MG TAB PO PRN (00:53)
[2018-09-13] MEDS: ONDANSETRON 4 MG/2 ML VIAL IVP PRN ×3 (00:53→14:17)
[2018-09-13] MEDS: oxyCODONE IR 5 MG TAB PO PRN ×6 (01:54→22:12)
[2018-09-13] MEDS ORDERED: MAGNESIUM SULF 1 GM/DEXTROSE 100 ML IV ONE (08:16)
[2018-09-13] MEDS: PANTOPRAZOLE SODIUM 40 MG VIAL IVP SCH (09:36)
[2018-09-13] MEDS: PROMETHAZINE HCL 25 MG/ML INJ IVP SCH ×3 (09:36→22:12)
[2018-09-13] MEDS: LIDOCAINE 4%/MENTHOL 1% PATCH TD SCH (09:37)
[2018-09-13] MEDS: POTASSIUM CL 20 MEQ TAB PO SCH ×2 (09:38→22:11)
[2018-09-13] MEDS: CALCIUM CARBONATE 500 MG TAB PO SCH ×3 (09:38→22:11)
[2018-09-13] MEDS: OMEGA-3 FATTY ACIDS 1,000 MG CAP PO SCH (09:39)
[2018-09-13] MEDS: MULTIVITAMINS 1 EACH TAB PO SCH (09:39)
[2018-09-13] MEDS: ESTRADIOL 42.5 GM CRTUBE VG SCH (09:47)
[2018-09-13] MEDS: BIMATOPROST TP SCH (09:47)
[2018-09-13] MEDS: EPINASTINE 0.05% 5 ML OPHT.BTL EACHEYE SCH (09:47)
[2018-09-13] MEDS: MAGNESIUM CITRATE 200 MG PO SCH ×2 (09:51→22:10)
[2018-09-13] MEDS: CIPROFLOXACIN 400 MG/DEXTROSE 200 ML IV SCH (11:11)
[2018-09-13] MEDS: KETOROLAC 30 MG/1 ML SDV IVP PRN (15:17)
[2018-09-13] MEDS: PATCH REMOVAL 1 EA PATCH TD SCH (22:10)
[2018-09-13] MEDS: GABAPENTIN 300 MG CAP PO SCH (22:11)
[2018-09-14] MEDS: oxyCODONE IR 5 MG TAB PO PRN ×2 (04:14→08:33)
[2018-09-14] MEDS: ONDANSETRON 4 MG/2 ML VIAL IVP PRN (04:14)
[2018-09-14 08:02] VITALS: BP 142/78
[2018-09-14] MEDS: BIMATOPROST TP SCH (08:17)
[2018-09-14] MEDS: ESTRADIOL 42.5 GM CRTUBE VG SCH (08:18)
[2018-09-14] MEDS: LIDOCAINE 4%/MENTHOL 1% PATCH TD SCH (08:18)
[2018-09-14] MEDS: EPINASTINE 0.05% 5 ML OPHT.BTL EACHEYE SCH (08:18)
[2018-09-14] MEDS: CALCIUM CARBONATE 500 MG TAB PO SCH (08:18)
[2018-09-14] MEDS: PANTOPRAZOLE SODIUM 40 MG VIAL IVP SCH (08:19)
[2018-09-14] MEDS: MAGNESIUM CITRATE 200 MG PO SCH (08:19)
[2018-09-14] MEDS: OMEGA-3 FATTY ACIDS 1,000 MG CAP PO SCH (08:19)
[2018-09-14] MEDS: MULTIVITAMINS 1 EACH TAB PO SCH (08:19)
[2018-09-14] MEDS: POTASSIUM CL 20 MEQ TAB PO SCH (08:20)
[2018-09-14] MEDS: PROMETHAZINE HCL 25 MG/ML INJ IVP SCH (08:20)
[2018-09-14] MEDS ORDERED: POTASSIUM CL 10 MEQ TAB PO ONE (08:37)
[2018-09-14] MEDS: KETOROLAC 30 MG/1 ML SDV IVP PRN (09:45)
--- NOTE | 2018-09-14 11:28 | ASDISCHSUM ---
Discharge Information Plan Status:Home with No Needs Medically Cleared to Leave: Discharge Date: D/C Disposition:Home, Routine, Self-Care ADT D/C Disposition:Home, Routine, Self-Care Projected Discharge Date:09/14/2018 12:00 AM Transportation at D/C:Family Discharge Delay Reason: Follow-Up Date:09/14/2018 12:00 AM Discharge Slot: Final Diagnosis: Placement Information Patient Contact Information Contact Name:VINITA Relationship: Address:[address] Work Phone: City:[place] Alternate Phone: [facility]/Zip Code:[place] [address] Email: Financial Information Financial Class:HMO and PPO Plans Primary Plan Desc:[facility] Primary Plan Number:[id number] Secondary Plan Desc: Secondary Plan Number: Assessment Information LACE LACE Length of stay for Answers: 4-6 days current admission Acuity / Level of Answers: Yes Care: Did the patient have an inpatient admission? Comorbidities - select Answers: Opioid dependence all that apply / Chronic pain Other Notes: Hep C # of Emergency department Answers: 3-4 visits in the last 6 months Score: 15 Date Signed: 09/14/2018 11:27 AM Electronically Signed By:ROXANA Bautista [facility] CM Progress Note CM Note CM Note Notes: Reviewed chart, pt admitted for general malaise. She has a history of hep c which was treated and an eating disorder which she feels is in remission. She lives at home with her , PT eval pending but anticipate she will dc independent. DC Plan: TBD Date Signed: 09/09/2018 03:47 PM Electronically Signed By:Martha Noe RN [facility] CM Progress Note CM Note CM Note Notes: Patient with new onset n/v and TURNER. Discharge delayed but likely tomorrow. No needs per RN and PT. Current CM Discharge plan: home independent w Date Signed: 09/11/2018 12:44 PM Electronically Signed By:Amelie Ugalde RN Case Management Discharge Plan Note Case Management Discharge Discharge Order Complete? Answers: Yes Patient to Obtain Answers: via Family Medications Transportation Arranged Answers: Family/Friends Discharge Comments Notes: Pt being discharged independently with support of . No CM needs identified. Family to transport. Date Signed: 09/14/2018 11:27 AM Electronically Signed By:ROXANA Bautista Intervention Information
--- NOTE | 2018-09-14 18:08 | GDS ---
[f rep st] DISCHARGE SUMMARY DISCHARGE DIAGNOSES: 1. Hyponatremia. 2. Weakness. 3. Hypokalemia. 4. Intractable nausea, vomiting. 5. Generalized pain. 6. Recent influenza A. 7. Pyuria. 8. History of hep C status post treatment. HISTORY OF PRESENT ILLNESS: A 63-year-old female with chronic hyponatremia, hepatitis C, migraines, presenting with a couple weeks of malaise. She has presented to the ER several times for similar sym ptoms. She was seen by her PCP where she received a flu test that was negative. But was treated wit h Bactrim and Tamiflu despite this. She has had decreased p.o. intake and diffuse myalgias. She says her eating disorder issues are in remission and has been considered to have bulimia in the p ast. HOSPITAL COURSE BY PROBLEM: 1. Hyponatremia, hypovolemic: Sodium as low as 121. Due to poor solute and hydrochlorothiazide the rapy. Treated with IV fluids, now 133. She should see her PCP on Wednesday for repeat labs. She shoul d discontinue hydrochlorothiazide indefinitely. Hold potassium. 2. Nausea and vomiting: No overt etiology. Do question underlying bulimia. She is now tolerating p.o. 3. History of pedal edema: She was on hydrochlorothiazide. This should be stopped due to hyponatre [place]. 4. Acute on chronic generalized pain: From her ribs down to her legs. There is no etiology explain ing this. She was on prednisone, but this was not effective, so this was discontinued. She has had relief with Toradol. She can resume Advil at home for the next few days and alternate with Tylenol. She had a low TSH, but normal free T3 and T4. 5. Recent influenza status post Tamiflu. 6. Pyuria: Positive UA, but negative culture. Discontinue antibiotics. 7. History of hepatitis C status post treatment. PHYSICAL EXAMINATION: VITAL SIGNS: Today, temperature 36.9, blood pressure 142/78, heart rate 85, r espirations 16, 93% on room air. GENERAL: She is fatigued but more color. HEENT: PERRLA. Moist m ucous membranes. CV: Regular rate and rhythm. LUNGS: Clear. ABDOMEN: Soft. Less tenderness gurpreet n yesterday. Positive bowel sounds. : No Jacinto. PSYCH: Alert and oriented x3. Time spent on discharge, greater than 30 minutes at bedside explaining followup plan, medications. /[id number]/MODL
--- NOTE | 2018-09-19 10:41 | PQFORM ---
PHYSICIAN QUERY FORM Needs Your Response This query form is being sent to you to assure this patient record is coded properly. Please respond to the question below: C ENGINEER QUESTION: Dear Dr. Gifford, In reviewing this patients medical record, patient held the diagnosis of hyponatremia along with dehydration. 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 ___x__Yes No Other more appropriate diagnosis (Please specify) Clinically unable to determine Thank you [facility]Coding Dept. INSTRUCTIONS FOR RESPONSE: Answer question by clicking on the "Edit Document" button. Move cursor to area below the stars. When complete, hit "Save." Click on the "Sign" button, then click "Sign" again. Type in your PIN and hit "Enter." MTDD
== END 2018-09-14 13:14 | disposition home or self-care (01) | DRG 644 ==
LOC: F3N 15:10
PROVIDERS: ADMIT Internal Medicine; ATTEND Internal Medicine
DX: E22.2 Syndrome of inappropriate secretion of antidiuretic hormone (principal); N39.0 Urinary tract infection, site not specified; E87.6 Hypokalemia; R53.1 Weakness; E86.0 Dehydration; B19.20 Unspecified viral hepatitis C without hepatic coma; G89.29 Other chronic pain; G43.909 Migraine, unspecified, not intractable, without status migrainosus
CPT/HCPCS: 84481-90; 96374; 97116-GP; 97161-GP; 97530-GP; J0744; J1885; J2405; J2550; J3030; J3475; J7512